=== PATIENT | female | born 1950 | race Caucasian/White ===

== ENCOUNTER 2020-09-30 07:51 | Emergency (ER) | payer MEDICARE, SELFPAY ==
[2020-09-30 07:55] VITALS: BP 176/85; PULSE 80; RESP 16; TEMP 36.9; O2SAT 100
[2020-09-30 08:51] VITALS: BP 159/68; BP 163/68; PULSE 71; PULSE 82
[2020-09-30 08:52] VITALS: BP 160/82; PULSE 81
[2020-09-30 08:56] LABS: Basophils Absolute Auto 0.1 K/mm3 (0.0-0.1); Basophils Percent Auto 0.6 % (0.2-1.2); Eosinophils Absolute Auto 0.1 K/mm3 (0-0.3); Eosinophils Percent Auto 1.1 % (0-4.4); Hematocrit 45.6 % (37.0-47.0); Hemoglobin 14.9 g/dL (12.0-15.0); Immature Granulocyte Absolute 0.03 K/mm3 (0.00-0.031); Immature Granulocyte Percent A 0.3 % (0-0.5); Lymphocytes Absolute Auto 1.52 K/mm3 (0.9-3.2); Lymphocytes Percent Auto 16.9 % (18.3-44.2); Mean Corpuscular HGB Conc 32.7 g/dl (32-36); Mean Corpuscular Volume 94.8 fl (80-100); Mean Platelet Volume 10.6 fl (7.4-10.4); Monocytes Absolute Auto 0.7 K/mm3 (0.1-0.6); Monocytes Percent Auto 8.1 % (2.6-8.5); Neutrophils Absolute Auto 6.6 K/mm3 (1.3-6.7); Platelet Count Result 372 k/mm3 (150-375); Red Blood Count 4.81 M/mm3 (4.2-5.4)
[2020-09-30 09:07] LABS: Alanine Aminotransferase 24 U/L (4-35); Albumin Level 4.5 g/dL (3.5-5.1); Alkaline Phosphatase 114 U/L (38-126); Anion Gap 6 mmol/L (8-16); Aspartate Amino Transferase 35 U/L (14-36); Bilirubin,Total 0.6 mg/dL (0.2-1.3); Blood Urea Nitrogen 14 mg/dL (7-17); Calcium 10.8 mg/dL (8.4-10.2); Carbon Dioxide 28 mmol/L (22-30); Chloride 104 mmol/L (98-107); Estimated CRCL calculation 54 ml/min; Estimated Glomerular Filt Rate > 60; Glucose 105 mg/dL (65-105); Lipase 81 U/L (23-300); Sodium 138 mmol/L (137-145)
--- NOTE | 2020-09-30 10:07 | ED.GIBLEED ---
HPI - GI Bleed General Chief complaint: GI Bleed Stated complaint: bloody diarrhea Time Seen by Provider: 09/30/20 07:57 History of Present Illness HPI Narrative: Patient is a 69-year-old female who presents ER with bloody bowel movements. She reports that yesterday she ate some [employer] that she had carried out. It was chicken fried chicken. 1 hour later she began having upset stomach and then developed diarrhea. Throughout the evening she began develop some blood within her stool. Most blood that she had was 1 tablespoon of gelatinous red material. She is not on blood thinners. She reports she had a normal bowel movement today without blood. No dizziness or loss of consciousness. Denies fevers or chills or sweats. No additional sick contacts. Related Data Allergies Allergy/AdvReac Type Severity Reaction Status Date / Time No Known Allergies Allergy Unknown Unverified 10/02/08 09:34 Review of Systems Review of Systems: All systems reviewed & are unremarkable except as noted in HPI and below Constitutional: Constitutional: Denies chills and Denies fever(s) ENT: Denies nasal congestion and Denies sore throat Gastrointestinal: Gastrointestinal: Denies abdominal pain, Reports diarrhea, Denies nausea and Denies vomiting Comments: Blood in stool Genitourinary: Genitourinary: Denies nocturia, Denies dysuria and Denies flank pain PMFSH Past Medical History Medical History (Updated 09/30/20 @ 11:16 by Damian Villagomez MD) Healthy female adult Surgical History Surgical History (Updated 09/30/20 @ 11:15 by Damian Villagomez MD) H/O sinus surgery Family History Family History (Updated 01/18/14 @ 07:13 by DOCTOR UNKNOWN) Mother Family history of glaucoma Family history of alcoholism Carcinoma of colon Father Hypertension Family history of alcoholism Cerebrovascular accident Social History Social History Smoking status: Never smoker Second hand tobacco smoke exposure: No Alcohol intake: never Exam Narrative: Exam Narrative: GENERAL: Well-appearing, well-nourished, and in no acute distress. HEAD: Normocephalic, atraumatic. CHEST: Clear to auscultation. No respiratory distress. HEART: Regular rate and rhythm. Normal peripheral pulses. ABDOMEN: Soft, nontender, nondistended. EXTREMITIES: Normal range of motion. No edema. SKIN: Warm, dry, no rash. NEURO: Alert and oriented x3. PSYCH: Normal mood and affect. Course Course Emergency Course: Patient informed of results which were quite unremarkable. Patient was able to provide a stool sample that was free of blood on visual inspection. Suspect food poisoning that caused some transient bleeding. Discharge home. Vital Signs Vital signs: Vital Signs Temperature 98.4 F 09/30/20 07:55 Pulse Rate 80 09/30/20 07:55 Respiratory Rate 16 09/30/20 07:55 Blood Pressure 176/85 H 09/30/20 07:55 Pulse Oximetry 100 09/30/20 07:55 Temperature 98.4 F 09/30/20 07:55 Pulse Rate 81 09/30/20 08:52 Respiratory Rate 16 09/30/20 07:55 Blood Pressure 160/82 H 09/30/20 08:52 Pulse Oximetry 100 09/30/20 07:55 MDM - GI Bleed Lab Data Result diagrams: 09/30/20 08:21 09/30/20 08:20 Labs: Lab Results 09/30/20 09/30/20 Range/Units 08:20 08:21 WBC 9.0 (4.5-10.0) K/mm3 RBC 4.81 (4.2-5.4) M/mm3 Hgb 14.9 (12.0-15.0) g/dL Hct 45.6 (37.0-47.0) % MCV 94.8 (80-100) fl MCH 31.0 (26-34) pg MCHC 32.7 (32-36) g/dl RDW 12.0 (11.5-14.5) % Plt Count 372 (150-375) k/mm3 MPV 10.6 H (7.4-10.4) fl Immature Gran % (Auto) 0.3 (0-0.5) % Neut % (Auto) 73.0 (45.5-73.1) % Lymph % (Auto) 16.9 L (18.3-44.2) % [place] % (Auto) 8.1 (2.6-8.5) % Eos % (Auto) 1.1 (0-4.4) % Baso % (Auto) 0.6 (0.2-1.2) % Lymph # (Auto) 1.52 (0.9-3.2) K/mm3 [place] # (Auto) 0.7 H (0.1-0.6) K/mm3 Eos # (Auto) 0.1 (0-0.3) K/mm3 Baso # (Auto) 0.1 (0.0-0
[2020-09-30 11:25] VITALS: BP 158/88; PULSE 70; RESP 16; O2SAT 98
== END 2020-09-30 11:25 | disposition home or self-care (01) ==
PROVIDERS: Emergency Provider Emergency Medicine; PCP Internal Medicine Geriatric Medicine
DX: A05.9 Bacterial foodborne intoxication, unspecified (principal)
CPT/HCPCS: 36415; 80053; 83690; 85025; 99283